=== PATIENT | female | born 1955 ===

== ENCOUNTER 2022-08-27 07:28 | Outpatient (CLI) | payer OTHER | END 2022-08-27 07:44 | disposition home or self-care (01) | LOC: RAD 07:28 | DX: M54.50 Low back pain, unspecified (principal); M62.830 Muscle spasm of back ==

== ENCOUNTER 2022-09-30 10:34 | Outpatient (CLI) | payer OTHER | END 2022-09-30 10:42 | disposition home or self-care (01) | LOC: RAD 10:34 | DX: M54.6 Pain in thoracic spine (principal) ==

== ENCOUNTER 2022-10-25 09:08 | Outpatient (CLI) | payer OTHER | END 2022-10-25 09:16 | disposition home or self-care (01) | LOC: RAD 09:08 | PROVIDERS: ATTEND Orthopaedic Surgery Orthopaedic Surgery of the Spine | DX: M41.20 Other idiopathic scoliosis, site unspecified (principal) ==

== ENCOUNTER 2022-12-26 08:50 | Outpatient (CLI) | payer OTHER | END 2022-12-26 09:02 | disposition home or self-care (01) | LOC: RAD 08:50 | PROVIDERS: ATTEND Orthopaedic Surgery Orthopaedic Surgery of the Spine | DX: M54.6 Pain in thoracic spine (principal) ==

== ENCOUNTER 2023-03-20 08:55 | Outpatient (CLI) | payer OTHER | END 2023-03-20 09:07 | disposition home or self-care (01) | LOC: RAD 08:55 | PROVIDERS: ATTEND Physical Medicine & Rehabilitation Pain Medicine | DX: M47.817 Spondylosis without myelopathy or radiculopathy, lumbosacral region (principal); M47.814 Spondylosis without myelopathy or radiculopathy, thoracic region ==

== ENCOUNTER 2023-09-22 07:07 | Outpatient (CLI) | payer OTHER | END 2023-09-22 07:16 | disposition home or self-care (01) | LOC: RAD 07:07 | PROVIDERS: ATTEND Physical Medicine & Rehabilitation Pain Medicine | DX: S22.080D Wedge compression fracture of T11-T12 vertebra, subsequent encounter for fracture with routine healing (principal); M47.817 Spondylosis without myelopathy or radiculopathy, lumbosacral region ==